=== PATIENT | female | born 1985 | race Caucasian/White ===

== ENCOUNTER 2020-11-29 01:46 | Emergency (ER) | payer SELFPAY ==
[~2020-11-29] VITALS: Ht 170.2 cm; Wt 83.5 kg
[~2020-11-29 01:46] MED LIST: FRS325T PO; METR500T PO; MULT-241; NIFE20CA PO; NITR-65 PO
--- NOTE | 2020-11-29 02:06 | ED GI ---
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 Has thrown up 3 times in pain is constant. Does have some pain of her right upper abdomen as well as her right back at the same level. History of similar episode 1 week ago that resolved. Only abdominal surgery is a tubal ligation. No fever chills or recent illness. Denies cough or shortness of air. Allergies and Home Medications Allergies Coded Allergies: sumatriptan (Unverified Allergy, Mild, RASH, DOUBLE VISION, 04/24/09) Uncoded Allergies: NKDA (Allergy, Mild, 02/28/09) Home Medications Ferrous Sulfate 325 Mg Tablet, 1 TAB PO BID, (Reported) Ibuprofen 800 Mg Tablet, 800 MG PO Q8H PRN for PAIN Prescribed by: FLORY BULL on 11/29/20313 Nifedipine 20 Mg Capsule, 20 MG PO Q4H, (Reported) Ondansetron 4 Mg Tab.rapdis, 4 MG PO TID Prescribed by: FLORY BULL on 11/29/20313 Patient Home Medication List Home Medication List Reviewed: Yes Review of Systems Review of Systems Constitutional: No chills, No fever, No malaise, No weakness EENTM: No Symptoms Reported Respiratory: Denies Cough, Denies Shortness of Air Cardiovascular: Denies Chest Pain, Denies Edema, Denies Palpitations, Denies Syncope Gastrointestinal: See HPI; Denies Abdomen Distended; Abdominal Pain; Denies Constipated, Denies Diarrhea; Nausea; Denies Poor Appetite, Denies Poor Fluid Intake, Denies Rectal Bleeding; Vomiting Genitourinary: Denies Burning, Denies Frequency, Denies Flank Pain, Denies Hematuria, Denies Pain, Denies Urgency Musculoskeletal: back pain; No joint pain, No muscle pain Skin: No change in color, No lesions, No rash Past Mqhbzot-Dxiguh-Zhimtf Hx Past Med/Social Hx: Reviewed Nursing Past Med/Soc Hx Patient Social History Alcohol Use: Denies Use Smoking Status: Current Everyday Smoker 2nd Hand Smoke Exposure: No Recent Infectious Disease Expo: No Recent Hopitalizations: Yes (CHILDBIRTH 2003; UTERINE INFECTION 2005) Past Medical History Surgeries: Yes (ELECTIVE 2005;WISDOM TEETH 2003) Respiratory: No Cardiac: No Neurological: No Reproductive Disorders: Yes Sexually Transmitted Disease: Yes (CHLAMYDIA,GONNORHEA) Genitourinary: No Gastrointestinal: No Musculoskeletal: No Endocrine: No HEENT: No Cancer: No Psychosocial: No Integumentary: No Blood Disorders: Yes Physical Exam Vital Signs Vital Signs - First Documented 11/29/20 01:55 Temp 36.6 Pulse 105 Resp 16 B/P (MAP) 126/99 (108) Pulse Ox 99 O2 Delivery Room Air Capillary Refill : Less Than 3 Seconds Height/Weight/BMI Height: '" Weight: lbs. oz. kg; 28.00 BMI Method: General Appearance: WD/WN, no apparent distress Respiratory: chest non-tender, lungs clear, normal breath sounds, no respiratory distress, no accessory muscle use Cardiovascular: regular rate, rhythm, no edema, no gallop, no JVD Gastrointestinal: soft, no organomegaly, no pulsatile mass, guarding (RUQ); No rebound; tenderness (epigastric and RUQ); No mass, No hepatomegaly, No spleenomegaly Back: no vertebral tenderness, CVA tenderness (R); No decreased range of motion Neurologic/Psychiatric: alert, normal mood/affect Skin: normal color, warm/dry Progress/Results/Core Measures Results/Orders Lab Results Laboratory Tests Test 11/29/20 02:05 11/29/20 02:25 Range/Units White Blood Count 12.2 H 4.3-11.0 10^3/uL Red Blood Count 4.20 L 4.35-5.85 10^6/uL Hemoglobin 11.7 11.5-16.0 G/DL Hematocrit 36 35-52 % Mean Corpuscular Volume 85 80-99 FL Mean Corpuscular Hemoglobin 28 25-34 PG Mean Corpuscular Hemoglobin Concent 33 32-36 G/DL Red Cell Distribution Width 14.8 H 10.0-14.5 % Platelet Count 220 130-400 10^3/uL Mean Platelet Volume 11.3 H 7.4-10.4 FL Immature Granulocyte % (Auto) 0 % Neutrophils (%) (Auto) 67 42-75 % Lymphocytes (%) (Auto) 25 12-44 % Monocytes (%) (Auto) 6 0-12 % Eosinophils (%) (Auto) 1 0-10 % Basophils (%) (Auto) 0 0-10 % Neutrophils # (Auto) 8.2 H 1.8-7.8 X 10^3 Lymphocytes # (Auto) 3.0 1.0-4.0 X 10^3 Monocytes # (Auto) 0.8 0.0-1.0 X 10^3 Eosinophils # (Auto) 0.1 0.0-0.3 10^3/uL Basophils # (Auto) 0.0 0.0-0.1 10^3/uL Immature Granulocyte # (Auto) 0.0 0.0-0.1 10^3/uL Sodium Level 141 135-145 MMOL/L Potassium Level 3.5 L 3.6-5.0 MMOL/L Chloride Level 108 H 98-107 MMOL/L Carbon Dioxide Level 24 21-32 MMOL/L Anion Gap 9 5-14 MMOL/L Blood Urea Nitrogen 10 7-18 MG/DL Creatinine 0.62 0.60-1.30 MG/DL Estimat Glomerular Filtration Rate > 60 BUN/Creatinine Ratio 16 Glucose Level 118 H 70-105 MG/DL Calcium Level 9.1 8.5-10.1 MG/DL Corrected Calcium 9.3 8.5-10.1 MG/DL Total Bilirubin < 0.2 0.1-1.0 MG/DL Aspartate Amino Transf (AST/SGOT) 30 5-34 U/L Alanine Aminotransferase (ALT/SGPT) 14 0-55 U/L Alkaline Phosphatase 87 40-136 U/L Total Protein 6.2 L 6.4-8.2 GM/DL Albumin 3.7 3.2-4.5 GM/DL Lipase 29 8-78 U/L Urine Color YELLOW Urine Clarity CLEAR Urine pH 6.0 5-9 Urine Specific [place] 1.025 H 1.016-1.022 Urine Protein NEGATIVE NEGATIVE Urine Glucose (UA) NEGATIVE NEGATIVE Urine Ketones TRACE H NEGATIVE Urine Nitrite NEGATIVE NEGATIVE Urine Bilirubin NEGATIVE NEGATIVE Urine Urobilinogen 1.0 < = 1.0 MG/DL Urine Leukocyte Esterase TRACE H NEGATIVE Urine RBC (Auto) NEGATIVE NEGATIVE Urine RBC NONE /HPF Urine WBC 2-5 /HPF Urine Squamous Epithelial Cells 2-5 /HPF Urine Crystals NONE /LPF Urine Bacteria NEGATIVE /HPF Urine Casts NONE /LPF Urine Mucus SMALL H /LPF Urine Trichomonas MODERATE H /HPF Urine Culture Indicated NO My Orders Orders - FLORY BULL DO Ed Iv/Invasive Line Start (11/29/20 02:01) Cbc With Automated Diff (11/29/20 02:01) Comprehensive Metabolic Panel (11/29/20 02:01) Lipase (11/29/20 02:01) Urinalysis (11/29/20 02:01) Ketorolac Injection (Toradol Injection) (11/29/20 02:15) Ondansetron Injection (Zofran Injectio (11/29/20 02:15) Ns Iv 1000 Ml (Sodium Chloride 0.9%) (11/29/20 02:15) Ct Abdomen/Pelvis Wo (11/29/20 02:03) Medications Given in ED Current Medications Medications Dose Ordered Sig/Chayo Route Start Time Stop Time Status Last Admin Dose Admin Ketorolac Tromethamine 30 mg 0215 ONCE IVP 11/29/20 02:15 11/29/20 02:16 DC 11/29/20 02:16 30 MG Ondansetron HCl 4 mg 0215 ONCE IVP 11/29/20 02:15 11/29/20 02:16 DC 11/29/20 02:16 4 MG Vital Signs/I&O 11/29/20 01:55 Temp 36.6 Pulse 105 Resp 16 B/P (MAP) 126/99 (108) Pulse Ox 99 O2 Delivery Room Air Blood Pressure Mean: 108 Progress Progress Note : Progress Note 0300 - pain improved, waiting for CT results. Diagnostic Imaging Diagonstic Imaging: CT Plain Films/CT/US/NM/MRI: abdomen Comments Impression- Cholelithiasis see report for details Departure Impression Primary Impression: Abdominal pain Qualified Codes: R10.13 - Epigastric pain Disposition: 01 HOME, SELF-CARE Condition: Improved Departure-Patient Inst. Decision time for Depature: 03:12 Referrals: NICOLASA PAK MD (PCP/Family) Primary Care Physician JEWELS العلي DO Patient Instructions: Gallstones (DC), Nausea and Vomiting, Adult ED Add. Discharge Instructions: Call Dr العلي to schedule a follow up appointment regarding your gallbladder. Avoid eating any fatty food. All discharge instructions reviewed with patient and/or family. Voiced understanding. Scripts Ondansetron (Ondansetron Odt) 4 Mg Tab.rapdis 4 MG PO TID for Nausea, #12 TAB Prov: FLORY BULL DO 11/29/20 Ibuprofen (Ibuprofen) 800 Mg Tablet 800 MG PO Q8H PRN for PAIN, #30 TAB 0 Refills Prov: FLORY BULL DO 11/29/20 Work/School Note: Work Release Form Date Seen in the Emergency Department: November 29, 2020 Return to Work: November 30, 2020 Restrictions: No Restrictions FLORY BULL DO November 29, 2020 02:06
[2020-11-29] MEDS ORDERED: NS IV 1000 ML 1,000 ML IV SCH (02:15)
[2020-11-29] MEDS ORDERED: ONDANSETRON 4 MG/2 ML (SDV) Z0FRAN IVP ONE (02:15)
[2020-11-29] MEDS ORDERED: KETOROLAC 30 MG/ML VIAL IVP ONE (02:15)
[2020-11-29 02:17] LABS: HEMATOCRIT 36 % (35-52); HEMOGLOBIN 11.7 G/DL (11.5-16.0); MEAN CORPUSCULAR HEMOGLOBIN 28 PG (25-34); MEAN CORPUSCULAR HGB CONC 33 G/DL (32-36); MEAN CORPUSCULAR VOLUME 85 FL (80-99); WHITE BLOOD COUNT 12.2 10^3/uL (4.3-11.0)
[2020-11-29 02:18] LABS: BASOPHILS % (AUTO) 0 % (0-10); EOSINOPHILS # (AUTO) 0.1 10^3/uL (0.0-0.3); EOSINOPHILS % (AUTO) 1 % (0-10); LYMPHOCYTES % (AUTO) 25 % (12-44); MEAN PLATELET VOLUME 11.3 FL (7.4-10.4); MONOCYTES # (AUTO) 0.8 X 10^3 (0.0-1.0); MONOCYTES % (AUTO) 6 % (0-12); NEUTROPHILS # (AUTO) 8.2 X 10^3 (1.8-7.8); NEUTROPHILS % (AUTO) 67 % (42-75); PLATELET COUNT 220 10^3/uL (130-400)
[2020-11-29 02:44] LABS: BACTERIA,URINE NEGATIVE /HPF; BILIRUBIN,URINE NEGATIVE (NEGATIVE); CLARITY,URINE CLEAR; COLOR,URINE YELLOW; GLUCOSE, URINE (UA) NEGATIVE (NEGATIVE); KETONES,URINE TRACE (NEGATIVE); LEUKOCYTE ESTERASE ,URINE TRACE (NEGATIVE); NITRITE,URINE NEGATIVE (NEGATIVE); PROTEIN,URINE NEGATIVE (NEGATIVE)
[2020-11-29 02:45] LABS: TRICHOMONAS,URINE MODERATE /HPF
[2020-11-29 02:47] LABS: ALANINE AMINOTRANSFERASE 14 U/L (0-55); ALBUMIN 3.7 GM/DL (3.2-4.5); ALKALINE PHOSPHATASE 87 U/L (40-136); BILIRUBIN,TOTAL < 0.2 MG/DL (0.1-1.0); BUN/CREATININE RATIO 16; CALCIUM 9.1 MG/DL (8.5-10.1); CARBON DIOXIDE 24 MMOL/L (21-32); CHLORIDE 108 MMOL/L (98-107); CREATININE SERUM 0.62 MG/DL (0.60-1.30); GFR ESTIMATED > 60; GLUCOSE 118 MG/DL (70-105); LIPASE 29 U/L (8-78); POTASSIUM 3.5 MMOL/L (3.6-5.0); SODIUM 141 MMOL/L (135-145); TOTAL PROTEIN 6.2 GM/DL (6.4-8.2)
[2020-11-29] MEDS ORDERED: ONDA4TAB11 PO (03:14)
[2020-11-29] MEDS ORDERED: IBUP-1780 PO (03:14)
[2020-11-29 03:30] VITALS: BP 126/99
--- NOTE | 2020-11-29 07:16 | Diagnostic Imaging Report ---
PROCEDURE: CT abdomen and pelvis without contrast. TECHNIQUE: Multiple contiguous axial images were obtained through the abdomen and pelvis without the use of intravenous contrast. Auto Exposure Controls were utilized during the CT exam to meet ALARA standards for radiation dose reduction. INDICATION: Nausea and vomiting. Abdominal pain. Right flank pain. COMPARISON: None FINDINGS: Included portions of the lung bases are clear. Small hiatal hernia is noted. CT ABDOMEN: Small bowel loops are nondistended. Normal appendix is identified. Moderate air and stool is present within the ascending and transverse colon. Kidneys, adrenal glands, spleen, pancreas, and liver have an unremarkable noncontrast CT appearance. Multiple gallstones are noted within the lumen of the gallbladder. There is no pericholecystic free fluid. There is no loculated fluid collection, free fluid or free air within the abdomen. No abnormal mesenteric or retroperitoneal adenopathy is seen. Osseous structures show no acute abnormalities. CT pelvis: Urinary bladder is unopacified. No calculi are seen within the urinary bladder. There is no loculated fluid collection, free fluid or free air within the pelvis. No abnormal lymph nodes are identified. Osseous structures show no acute abnormalities. IMPRESSION: 1. Cholelithiasis. 2. Normal appendix. Dictated by: Dictated on workstation # [id number]
== END 2020-11-29 03:30 | disposition home or self-care (01) ==
LOC: EDUNIT# 01:46 → ER FS 01:48
DX: R10.13 Epigastric pain (principal); R10.11 Right upper quadrant pain; R11.2 Nausea with vomiting, unspecified; F17.200 Nicotine dependence, unspecified, uncomplicated; Z98.51 Tubal ligation status
CPT/HCPCS: 36415; 74176; 80053; 81000; 83690; 85025

== ENCOUNTER 2022-03-19 23:35 | Emergency (ER) | payer SELFPAY ==
[~2022-03-19 23:35] MED LIST changes: +IBUP-1780 PO; +ONDA4TAB11 PO
[2022-03-19] MEDS ORDERED: FAMOTIDINE 20MG/2ML IV (PEPCID) IV STA (23:47)
--- NOTE | 2022-03-19 23:49 | ED Abdominal Pain ---
General Stated Complaint: ABDOMINAL PAIN History of Present Illness Date Seen by Provider: Mar 19, 2022 Time Seen by Provider: 23:40 Initial Comments 37-year-old female with no significant PMH is here with complaints of sudden onset of abdominal pain in epigastric and right upper quadrant region. Patient states that she was told 2 years ago that she has gallbladder stones but did not keep up her doctors visits scheduled. Patient ate [employer] crested chicken with cheese puffs for dinner and vomited up the entire thing afterward due to the abdominal pain. Denies fever, diarrhea, chest pain, shortness of breath, cough. Patient rates the pain 04/22. Allergies and Home Medications Allergies Coded Allergies: sumatriptan (Unverified Allergy, Mild, RASH, DOUBLE VISION, 04/24/09) Uncoded Allergies: NKDA (Allergy, Mild, 02/28/09) Patient Home Medication List Home Medication List Reviewed: Yes Ferrous Sulfate (Iron) 325 Mg Tablet, 1 TAB PO BID, (Reported) Entered as Reported by: SARAHI GONZALEZ on 08/21/10 1118 Ibuprofen (Ibuprofen) 800 Mg Tablet, 800 MG PO Q8H PRN for PAIN Prescribed by: FLORY BULL on 11/29/20 0314 Multivits W-Fe,Other Min (Flintstones Complete) 1 Tab.chew Tab.chew, (Reported) Entered as Reported by: JEFF VERDUGO on 04/24/09 1849 Nifedipine (Procardia) 20 Mg Capsule, 20 MG PO Q4H, (Reported) Entered as Reported by: SARAHI GONZALEZ on 08/21/10 1118 Ondansetron (Ondansetron Odt) 4 Mg Tab.rapdis, 4 MG PO TID Prescribed by: FLORY BULL on 11/29/20 0314 Review of Systems Review of Systems Constitutional: no symptoms reported EENTM: No Symptoms Reported Respiratory: No Symptoms Reported Cardiovascular: No Symptoms Reported Gastrointestinal: Abdominal Pain, Nausea, Vomiting Genitourinary: No Symptoms Reported Musculoskeletal: no symptoms reported Skin: no symptoms reported Psychiatric/Neurological: No Symptoms Reported Endocrine: No Symptoms Reported Hematologic/Lymphatic: No Symptoms Reported Past Ntvwkej-Zalzyu-Rokost Hx Past Medical History Surgeries: Yes (ELECTIVE 2005;WISDOM TEETH 2003) Tubal Ligation Respiratory: No Cardiac: No Neurological: No Reproductive Disorders: Yes Sexually Transmitted Disease: Yes (CHLAMYDIA,GONNORHEA) Genitourinary: No Gastrointestinal: No Musculoskeletal: No Endocrine: No HEENT: No Cancer: No Psychosocial: No Integumentary: No Blood Disorders: Yes Physical Exam Vital Signs Vital Signs - First Documented 03/19/22 23:40 Temp 36.5 Pulse 107 Resp 18 B/P (MAP) 157/94 (115) Pulse Ox 98 O2 Delivery Room Air Capillary Refill : Height/Weight/BMI Height: '" Weight: lbs. oz. kg; 28.00 BMI Method: General Appearance: WD/WN, no apparent distress HEENT: PERRL/EOMI Neck: non-tender, full range of motion Respiratory: chest non-tender, lungs clear, normal breath sounds Cardiovascular: normal peripheral pulses, regular rate, rhythm Gastrointestinal: normal bowel sounds, soft, no organomegaly, tenderness (RUQ and epigastric region) Extremities: normal range of motion Neurologic/Psychiatric: alert, normal mood/affect, oriented x 3 Skin: normal color Progress/Results/Core Measures Results/Orders Lab Results Laboratory Tests Test 03/19/22 23:45 03/19/22 23:55 Range/Units White Blood Count 12.1 H 4.3-11.0 10^3/uL Red Blood Count 4.24 3.80-5.11 10^6/uL Hemoglobin 10.2 L 11.5-16.0 g/dL Hematocrit 32 L 35-52 % Mean Corpuscular Volume 74 L 80-99 fL Mean Corpuscular Hemoglobin 24 L 25-34 pg Mean Corpuscular Hemoglobin Concent 32 32-36 g/dL Red Cell Distribution Width 16.6 H 10.0-14.5 % Platelet Count 212 130-400 10^3/uL Mean Platelet Volume 10.9 9.0-12.2 fL Immature Granulocyte % (Auto) 0 % Neutrophils (%) (Auto) 61 42-75 % Lymphocytes (%) (Auto) 29 12-44 % Monocytes (%) (Auto) 8 0-12 % Eosinophils (%) (Auto) 1 0-10 % Basophils (%) (Auto) 0 0-10 % Neutrophils # (Auto) 7.3 1.8-7.8 10^3/uL Lymphocytes # (Auto) 3.5 1.0-4.0 10^3/uL Monocytes # (Auto) 1.0 0.0-1.0 10^3/uL Eosinophils # (Auto) 0.2 0.0-0.3 10^3/uL Basophils # (Auto) 0.0 0.0-0.1 10^3/uL Immature Granulocyte # (Auto) 0.1 0.0-0.1 10^3/uL Sodium Level 140 135-145 MMOL/L Potassium Level 3.9 3.6-5.0 MMOL/L Chloride Level 106 98-107 MMOL/L Carbon Dioxide Level 22 21-32 MMOL/L Anion Gap 12 5-14 MMOL/L Blood Urea Nitrogen 10 7-18 MG/DL Creatinine 0.65 0.60-1.30 MG/DL Estimat Glomerular Filtration Rate 118 BUN/Creatinine Ratio 15 Glucose Level 103 70-105 MG/DL Calcium Level 9.0 8.5-10.1 MG/DL Corrected Calcium 9.2 8.5-10.1 MG/DL Total Bilirubin 0.2 0.1-1.0 MG/DL Aspartate Amino Transf (AST/SGOT) 16 5-34 U/L Alanine Aminotransferase (ALT/SGPT) 10 0-55 U/L Alkaline Phosphatase 123 40-136 U/L Total Protein 6.5 6.4-8.2 GM/DL Albumin 3.8 3.2-4.5 GM/DL Lipase 39 8-78 U/L Serum Alcohol < 10 <10 MG/DL Urine Color YELLOW Urine Clarity CLOUDY Urine pH 6.5 5-9 Urine Specific [place] 1.015 L 1.016-1.022 Urine Protein NEGATIVE NEGATIVE Urine Glucose (UA) NEGATIVE NEGATIVE Urine Ketones NEGATIVE NEGATIVE Urine Nitrite NEGATIVE NEGATIVE Urine Bilirubin NEGATIVE NEGATIVE Urine Urobilinogen 0.2 < = 1.0 MG/DL Urine Leukocyte Esterase NEGATIVE NEGATIVE Urine RBC (Auto) NEGATIVE NEGATIVE Urine RBC RARE /HPF Urine WBC 0-2 /HPF Urine Squamous Epithelial Cells 5-10 /HPF Urine Crystals NONE /LPF Urine Bacteria FEW H /HPF Urine Casts NONE /LPF Urine Mucus LARGE H /LPF Urine Trichomonas FEW H /HPF Urine Culture Indicated NO Urine Test NEGATIVE NEGATIVE Urine Opiates Screen NEGATIVE NEGATIVE Urine Oxycodone Screen NEGATIVE NEGATIVE Urine Methadone Screen NEGATIVE NEGATIVE Urine Propoxyphene Screen NEGATIVE NEGATIVE Urine Barbiturates Screen NEGATIVE NEGATIVE Ur Tricyclic Antidepressants Screen POSITIVE H NEGATIVE Urine Phencyclidine Screen NEGATIVE NEGATIVE Urine Amphetamines Screen NEGATIVE NEGATIVE Urine Methamphetamines Screen NEGATIVE NEGATIVE Urine Benzodiazepines Screen NEGATIVE NEGATIVE Urine Cocaine Screen NEGATIVE NEGATIVE Urine Cannabinoids Screen NEGATIVE NEGATIVE My Orders Orders - VERNELL UP MD Comprehensive Metabolic Panel (03/19/22 23:38) Lipase (03/19/22 23:38) Ua Culture If Indicated (03/19/22 23:38) Ed Iv/Invasive Line Start (03/19/22 23:38) Cbc With Automated Diff (03/19/22 23:38) Alcohol (03/19/22 23:38) Drug Screen Stat (Urine) (03/19/22 23:38) Hcg,Qualitative Urine (03/19/22 23:38) Ct Abdomen/Pelvis W (03/19/22 23:40) Ondansetron Injection (Zofran Injectio (03/20/22 00:00) Famotidine Injection (Pepcid Injection) (03/19/22 23:47) Iohexol Injection (Omnipaque 350 Mg/Ml 1 (03/20/22 00:00) Received Contrast (Hold Metformin- Contr (03/20/22 00:00) Sodium Chloride Flush (Catheter Flush Sy (03/20/22 00:00) Ns (Ivpb) (Sodium Chloride 0.9% Ivpb Bag (03/20/22 00:00) Ondansetron Injection (Zofran Injectio (03/19/22 23:51) Famotidine Injection (Pepcid Injection) (03/19/22 23:51) Medications Given in ED Current Medications Medications Dose Ordered Sig/Chayo Route Start Time Stop Time Status Last Admin Dose Admin Iohexol 100 ml ONCE ONCE IV 03/20/22 00:00 03/20/22 00:01 DC 03/20/22 00:15 100 ML Ondansetron HCl 4 mg ONCE ONCE IVP 03/20/22 00:00 03/20/22 00:04 DC 03/19/22 23:53 4 MG Sodium Chloride 10 ml NEEDED PRN IV 03/20/22 00:00 03/20/22 00:15 10 ML Sodium Chloride 100 ml ONCE ONCE IV 03/20/22 00:00 03/20/22 00:01 DC 03/20/22 00:15 80 ML Vital Signs/I&O 03/19/22 03/20/22 23:40 00:31 Temp 36.5 Pulse 107 91 Resp 18 15 B/P (MAP) 157/94 (115) 136/87 (103) Pulse Ox 98 99 O2 Delivery Room Air Room Air Progress Progress Note : Progress Note 1. ABDOMINAL PAIN: ACUTE CHOLELITHIASIS WITHOUT CHOLECYSTITIS - CT ABD & PELVIS: Cholelithiasis with nearby fat haziness but no lumen dilation or obvious wall thickening, question chronic cholecystitis. -Labs unremarkable - UA/ UDS: unremarkable - Toradol 15mg iv/ Zofran 4mg iv/Percocet tab - Percocet dispensed from the ER - Mild to moderate pain: Ibuprofen or Naproxen - Severe pain: Percocet 1 tab Q6H - Follow up with Surgery clinic, Dr. Foote's office - Gallstone diet - Zofran TID prescription -The patient was seen in the ED, and treated appropriately to presentation at a specific point in time. Patient is informed that there is a possibility that disease and illness can evolve and change in acuity rapidly or slowly after patient is discharged from the ER. Precautionary advice given to the patient for immediate return to ER if symptoms worsen or do not resolve, and to seek emergency care sooner rather than later. Pt also advised on the importance of PCP follow up and compliance with management and follow up plan with PCP and/or specialist, as this is part of the management plan. Pt verbally expressed understanding. Diagnostic Imaging Diagonstic Imaging: CT Plain Films/CT/US/NM/MRI: abdomen Departure Impression Primary Impression: Cholelithiasis Qualified Codes: K80.20 - Calculus of gallbladder without cholecystitis without obstruction Disposition: 01 HOME, SELF-CARE Condition: Improved Departure-Patient Inst. Referrals: NICOLASA PAK MD (PCP/Family) Primary Care Physician JEWELS FOOTE DO Patient Instructions: Gallbladder Diet, Gallstones (DC) Add. Discharge Instructions: - Mild to moderate pain: Ibuprofen or Naproxen - Severe pain: Percocet 1 tab Q6H - Follow up with Surgery clinic, Dr. Foote's office - Gallstone diet Scripts Ondansetron (Ondansetron Odt) 4 Mg Tab.rapdis 4 MG PO TID for Nausea, #10 TAB Prov: VERNELL UP MD 03/20/22 VERNELL UP MD Mar 19, 2022 23:49
[2022-03-19 23:50] LABS: BASOPHILS % (AUTO) 0 % (0-10); EOSINOPHILS # (AUTO) 0.2 10^3/uL (0.0-0.3); EOSINOPHILS % (AUTO) 1 % (0-10); HEMATOCRIT 32 % (35-52); HEMOGLOBIN 10.2 g/dL (11.5-16.0); LYMPHOCYTES # (AUTO) 3.5 10^3/uL (1.0-4.0); LYMPHOCYTES % (AUTO) 29 % (12-44); MEAN CORPUSCULAR HEMOGLOBIN 24 pg (25-34); MEAN CORPUSCULAR HGB CONC 32 g/dL (32-36); MEAN CORPUSCULAR VOLUME 74 fL (80-99); MEAN PLATELET VOLUME 10.9 fL (9.0-12.2); MONOCYTES % (AUTO) 8 % (0-12); NEUTROPHILS # (AUTO) 7.3 10^3/uL (1.8-7.8); NEUTROPHILS % (AUTO) 61 % (42-75); PLATELET COUNT 212 10^3/uL (130-400); WHITE BLOOD COUNT 12.1 10^3/uL (4.3-11.0)
[2022-03-19] MEDS ORDERED: ONDANSETRON 4 MG/2 ML (SDV) Z0FRAN ONE (23:51)
[2022-03-19] MEDS ORDERED: FAMOTIDINE 20MG/2ML IV (PEPCID) ONE (23:51)
[2022-03-20] MEDS ORDERED: HOLD METFORMIN - RECEIVED CONTRAST 20 ML VIAL IV SCH
[2022-03-20] MEDS ORDERED: NS 100 ML (IVPB) BAG IV ONE
[2022-03-20] MEDS ORDERED: IOHEXOL 350 MG/ML 100 ML (OMNIPAQUE 350) VIAL IV ONE
[2022-03-20] MEDS ORDERED: CATHETER FLUSH 10 ML SYR IV PRN
[2022-03-20] MEDS ORDERED: ONDANSETRON 4 MG/2 ML (SDV) Z0FRAN IVP ONE
[2022-03-20 00:15] LABS: BILIRUBIN,URINE NEGATIVE (NEGATIVE); CLARITY,URINE CLOUDY; COLOR,URINE YELLOW; GLUCOSE, URINE (UA) NEGATIVE (NEGATIVE); KETONES,URINE NEGATIVE (NEGATIVE); LEUKOCYTE ESTERASE ,URINE NEGATIVE (NEGATIVE); NITRITE,URINE NEGATIVE (NEGATIVE); PH,URINE 6.5 (5-9); PROTEIN,URINE NEGATIVE (NEGATIVE)
[2022-03-20 00:25] LABS: BACTERIA,URINE FEW /HPF; RBC,URINE RARE /HPF; TRICHOMONAS,URINE FEW /HPF; WBC,URINE 0-2 /HPF
[2022-03-20 00:26] LABS: HCG,QUALITATIVE URINE NEGATIVE (NEGATIVE)
[2022-03-20 00:28] LABS: AMPHETAMINE SCREEN, URINE NEGATIVE (NEGATIVE); BARBITURATE SCREEN URINE NEGATIVE (NEGATIVE); BENZODIAZEPINES SCREEN URINE NEGATIVE (NEGATIVE); CANNABINOID SCREEN, URINE NEGATIVE (NEGATIVE); COCAINE SCREEN URINE NEGATIVE (NEGATIVE); METHADONE STAT NEGATIVE (NEGATIVE); OPIATE SCREEN URINE NEGATIVE (NEGATIVE); OXYCODONE STAT NEGATIVE (NEGATIVE); PROPOXYPHENE STAT NEGATIVE (NEGATIVE); TRICYCLIC ANTIDEPRESSANTS SCRE POSITIVE (NEGATIVE)
[2022-03-20 00:31] LABS: POTASSIUM 3.9 MMOL/L (3.6-5.0)
[2022-03-20 00:32] LABS: ALBUMIN 3.8 GM/DL (3.2-4.5); BILIRUBIN,TOTAL 0.2 MG/DL (0.1-1.0); CREATININE SERUM 0.65 MG/DL (0.60-1.30); TOTAL PROTEIN 6.5 GM/DL (6.4-8.2)
[2022-03-20] MEDS ORDERED: ONDA4TAB11 PO ×2 (01:45→07:05)
[2022-03-20] MEDS ORDERED: RX-OXYCODONE/APAP 5-325 MG #4 TAB PK PO ONE (01:53)
[2022-03-20] MEDS ORDERED: oxyCODONE/APAP 5/325MG (PERCOCET 5) TABLET ONE (01:53)
[2022-03-20 02:00] VITALS: BP 136/72
[2022-03-20] MEDS ORDERED: RX-OXYCODONE/APAP 5-325 MG #4 TAB PK PO PRN (02:00)
[2022-03-20] MEDS ORDERED: oxyCODONE/APAP 5/325MG (PERCOCET 5) TABLET PO ONE (02:00)
--- NOTE | 2022-03-20 07:23 | Diagnostic Imaging Report ---
EXAMINATION: CT abdomen and pelvis with intravenous contrast. TECHNIQUE: Multiple contiguous axial images were obtained through the abdomen and pelvis after the uneventful administration of intravenous contrast. All CT scans use one or more of the following dose optimizing techniques: automated exposure control, MA and/or KvP adjustment based on patient size and exam type or iterative reconstruction. HISTORY: Abdominal pain. COMPARISON: 11/29/2020. FINDINGS: The heart is unremarkable. Tree-in-bud opacities are seen in the right middle lobe. The gallbladder is filled with gallstones. The liver, spleen, pancreas, adrenal glands, and kidneys have a normal appearance. There is no pathologically enlarged mesenteric or retroperitoneal adenopathy. The bowel loops are nondilated. The appendix is visualized in the right lower quadrant and has a normal appearance. There is no free fluid or free air. No acute osseous abnormalities. Ureters and bladder are grossly normal. There is no free air, loculated collection, or adenopathy in the pelvis. IMPRESSION: 1. Cholelithiasis. Consider liver gallbladder ultrasound to further evaluate. 2. Tree-in-bud opacities in the right middle lobe, suggestive of inflammatory or infectious process. Agree with overnight report. Dictated by: Dictated on workstation # [id number]
== END 2022-03-20 02:00 | disposition home or self-care (01) ==
LOC: EDUNIT# 23:35 → ER FS 23:38
DX: K80.20 Calculus of gallbladder without cholecystitis without obstruction (principal); Z28.310 Unvaccinated for COVID-19
CPT/HCPCS: 36415; 74177; 80053; 80306; 81000; 83690; 84703 ×2; 85025; 99284; G0480; 80320